=== PATIENT | female | born 2000 | race Caucasian/White ===

== ENCOUNTER 2018-04-17 14:21 | Emergency (ER) | payer OTHER ==
[~2018-04-17] VITALS: Ht 172.7 cm; Wt 77.1 kg
[2018-04-17 14:35] VITALS: BP_SYST 134
[2018-04-17 15:33] VITALS: BP_SYST 134
== END 2018-04-17 15:33 | disposition home or self-care (01) ==
LOC: SED 14:21
DX: S50.01XA Contusion of right elbow, initial encounter (principal); X50.9XXA Other and unspecified overexertion or strenuous movements or postures, initial encounter; Y93.89 Activity, other specified; Y92.89 Other specified places as the place of occurrence of the external cause; Y99.8 Other external cause status
CPT/HCPCS: 99284

== ENCOUNTER 2018-04-23 11:54 | Emergency (ER) | payer OTHER ==
[~2018-04-23] VITALS: Ht 172.7 cm; Wt 77.1 kg
[2018-04-23 12:02] VITALS: BP_SYST 132
[2018-04-23] MEDS ORDERED: IBUPROFEN 600 MG TABLET PO ONE (12:30)
[2018-04-23 13:05] VITALS: BP_SYST 132
== END 2018-04-23 13:04 | disposition home or self-care (01) ==
LOC: SED 11:54
DX: S53.401A Unspecified sprain of right elbow, initial encounter (principal); Z91.018 Allergy to other foods; W18.09XA Striking against other object with subsequent fall, initial encounter; Y93.89 Activity, other specified; Y92.096 Garden or yard of other non-institutional residence as the place of occurrence of the external cause; Y99.8 Other external cause status
CPT/HCPCS: 99284

== ENCOUNTER 2019-08-15 16:30 | Emergency (ER) | payer MEDICAID, OTHER ==
[~2019-08-15] VITALS: Ht 175.3 cm; Wt 77.1 kg
[2019-08-15 17:09] VITALS: BP_SYST 137
--- NOTE | 2019-08-15 18:45 | NUR ---
Patient to ER bed H1 to gown for evaluation. Side rails up.
--- NOTE | 2019-08-15 18:46 | NUR ---
PT PRESENTS TO ED C/O L INDEX INJURY W/BRUISING TO NAILBED ON YESTERDAY WHILE PT WAS AT WORK.
--- NOTE | 2019-08-15 18:50 | NUR ---
JOSE DANIEL HILLIARD at bedside examining patient.
--- NOTE | 2019-08-15 20:00 | NUR ---
Pt resting in bed listening to music. No needs verbalized at this time.
[2019-08-15 21:30] VITALS: BP_SYST 128
--- NOTE | 2019-08-15 21:30 | NUR ---
Patient given written and verbal discharge instructions and verbalizes understanding. ER MD discussed with patient the results and treatment provided. Patient in stable condition. ID arm band removed. Rx of Motrin given. Patient educated on pain management and to follow up with PMD. Pain Scale 1/10. Opportunity for questions provided and answered. Medication side effect fact sheet provided.
== END 2019-08-15 19:00 | disposition still patient (30) ==
LOC: SED 16:30
DX: S62.631A Displaced fracture of distal phalanx of left index finger, initial encounter for closed fracture (principal); W23.0XXA Caught, crushed, jammed, or pinched between moving objects, initial encounter; Y93.89 Activity, other specified; Y92.89 Other specified places as the place of occurrence of the external cause; Y99.8 Other external cause status
CPT/HCPCS: 29130; 73140; 99283; J7030